=== PATIENT | male | born 1965 | race Hispanic/Latino ===

== ENCOUNTER 2024-11-27 08:11 | Inpatient (IN) | payer BC ==
[~2024-11-27] VITALS: Ht 185.4 cm; Wt 94.0 kg
[2024-11-27] VITALS (14 sets, daily range): BP systolic 88–132; BP diastolic 47–91; PULSE 70–105; RESP 14–22; TEMP 98.1–98.3; O2SAT 95
--- NOTE | 2024-11-27 08:27 | ERN ---
General Chief Complaint: Chest Pain Stated Complaint: CHEST PAIN Time Seen by MD: 08:14 History of Present Illness Initial Comments 59-year-old male history of diabetes dyslipidemia who presents for chest pain. Patient reports over the last month he has had on and off exertional chest pain and dyspnea on exertion. Over the last few days he has had increased frequency and increased severity. This morning he woke up with a very severe right-sided chest pain described as a pressure, 9/10. He went to his PCP about a week ago and was referred to a human resources advisor, but he has not had an outpatient follow up yet. He takes metformin for diabetes and a medication for dyslipidemia. No medical history otherwise. No surgical history. Denies drug abuse. This morning he reports he was at work he developed severe chest pressure and became very pale and sweaty. Allergies: Coded Allergies: No Known Allergies (Unverified Allergy, Unknown, 11/27/24) Home Meds Reported Medications Metformin HCl (Metformin HCl) 500 Mg Tablet, 1 TAB PO BID for 30 Days, #60 TAB 0 Refills 11/27/24 Past Medical History Past Medical History: Diabetes-Type II Past Surgical History: None ROS Dictation CONSTITUTIONAL: No chills, no fever, no weakness, no diaphoresis, no malaise. HEAD/FACE: No signs of trauma. EENT: No eye pain, no blurred vision, no tearing, no double vision, no ear pain, no ear discharge, no nose pain, no nasal congestion, no throat pain, no throat swelling, no mouth pain. RESPIRATORY: No cough, no orthopnea, no SOB, no stridor, no wheezing. CARDIOVASCULAR: Chest pain, dyspnea on exertion GASTROINTESTINAL/ABDOMINAL: No abdominal pain, no constipation, no diarrhea, no nausea, no vomiting. GENITOURINARY: No abnormal discharge, no dysuria, no frequent urination, no hematuria. No complaints of pain in the genitals. MUSCULOSKELETAL: No back pain, no gout, no joint pain, no joint swelling, no muscle pain, no muscle stiffness, no neck pain. INTEGUMENTARY: No change in color, no change in hair/nails, no dryness, no lesion, no lumps, no rash. NEUROLOGICAL/PSYCH: No anxiety, not depressed, no emotional problem, no headache, no numbness, no pre-existing deficit, no history of seizures, no tremors, no weakness. HEMATOLOGIC/LYMPHATIC: Not anemic, no history of blood clots, no apparent bleeding, no bruising, glands not swollen. All Systems Negative, Except as Noted. Physical Exam Physical Exam Dictation VITAL SIGNS: Reviewed. GENERAL APPEARANCE: Alert, oriented x3, moderate distress due to pain HEAD AND FACE: Non-traumatic. EYES: PERRL, pink conjunctivas, eyelid no trauma, anterior chamber clear. EARS: Pinnas intact and no signs of trauma or erythema. Ear canals clear and no discharge. TMs no erythema. NOSE: No discharge, no bleeding. OROPHARYNX: Mouth normal, teeth no caries, tongue pink. Pharynx clear, no erythema. Tonsils no exudates, no abscesses noted. Mucous membrane moist. NECK: Supple, non-tender, no thyromegaly, no masses, no JVD, no bruits. BREAST: Deferred. CHEST: No tenderness, no crepitus, no paradoxical movement, no retractions. LUNGS: Clear, well-ventilated, symmetric, no rales, no wheezing, no rhonchi, no stridor, good breath sounds bilaterally. HEART: Regular rate, regular rhythm, no murmur, no gallops. VASCULAR: No peripheral edema. ABDOMEN: Soft, positive bowel sounds, nondistended, no guarding, nontender, no rebound, no masses no hepatomegaly, no splenomegaly, no Gray's sign, no hernias. RECTAL: Deferred. GENITAL: Deferred. NEUROLOGICAL: Normal speech, gross motor function intact, gross sensory function intact. MUSCULOSKELETAL: Neck nontender, full range of motion, back nontender, full range of motion. EXTREMITIES: Nontender, full range of motion. SKIN: Color pink, dry, no turgor, no rash, no lacerations, no abrasions, no contusions. LYMPHATICS: Deferred. Results Laboratory and Microbiology Lab and Micro Result Laboratory Tests Test 11/27/24 08:43 11/27/24 09:32 White Blood Count 8.3 K/uL (4.8-10.8) 9.0 K/uL (4.8-10.8) Red Blood Count 5.53 MIL/uL (4.50-6.20) 4.80 MIL/uL (4.50-6.20) Hemoglobin 16.3 g/dL (14.0-18.0) 14.1 g/dL (14.0-18.0) Hematocrit 50.3 % (42-54) 43.0 % (42-54) Mean Corpuscular Volume 91.0 fL (79-99) 89.6 fL (79-99) Mean Corpuscular Hemoglobin 29.5 pg (27.0-33.0) 29.4 pg (27.0-33.0) Mean Corpuscular Hemoglobin Concent 32.4 g/dL (32.0-36.0) 32.8 g/dL (32.0-36.0) Red Cell Distribution Width 12.6 % (11.0-15.5) 12.6 % (11.0-15.5) Platelet Count 250 K/uL (130-400) 248 K/uL (130-400) Mean Platelet Volume 11.8 fL (7.5-10.5) H 11.4 fL (7.5-10.5) H Immature Granulocyte % (Auto) 0.2 % (0-1) 0.3 % (0-1) Neutrophils (%) (Auto) 68.5 % (40.0-77.0) 81.3 % (40.0-77.0) H Lymphocytes (%) (Auto) 19.8 % (21.0-51.0) L 11.6 % (21.0-51.0) L Monocytes (%) (Auto) 5.9 % (3.0-13.0) 4.2 % (3.0-13.0) Eosinophils (%) (Auto) 5.1 % (0.0-8.0) 2.3 % (0.0-8.0) Basophils (%) (Auto) 0.5 % (0.0-5.0) 0.3 % (0.0-5.0) Neutrophils # (Auto) 5.7 K/uL (1.8-7.7) 7.3 K/uL (1.8-7.7) Lymphocytes # (Auto) 1.6 K/uL (1.0-4.8) 1.0 K/uL (1.0-4.8) Monocytes # (Auto) 0.5 K/uL (0.1-1.0) 0.4 K/uL (0.1-1.0) Eosinophils # (Auto) 0.42 K/uL (0.00-0.70) 0.21 K/uL (0.00-0.70) Basophils # (Auto) 0.04 K/uL (0.00-0.20) 0.03 K/uL (0.00-0.20) Absolute Immature Granulocyte (auto 0.02 K/uL (0-1) 0.03 K/uL (0-1) Nucleated Red Blood Cells 0.0 % (0.0-0.19) 0.0 % (0.0-0.19) Sodium Level 143 mmol/L (136-145) Potassium Level 3.8 mmol/L (3.5-5.1) Chloride Level 106 mmol/L (101-111) Carbon Dioxide Level 26 mmol/L (21-32) Blood Urea Nitrogen 13 mg/dL (7-18) Creatinine 1.0 mg/dL (0.5-1.3) Glomerular Filtration Rate Calc 88 mL/min (>90) Random Glucose 202 mg/dL (70-105) H Total Calcium 8.7 mg/dL (8.5-10.1) Magnesium Level 2.00 mg/dL (1.80-2.40) Total Creatine Kinase 102 U/L (21-232) Troponin I High Sensitivity 146 ng/L (4-75) *H 315 ng/L (4-75) *H B-Type Natriuretic Peptide 23 pg/mL (0-100) Triglycerides Level 94 mg/dL (30-200) Cholesterol Level 186 mg/dL (<200) LDL Cholesterol 125 mg/dL (0-99) H HDL Cholesterol 47 mg/dL (29-71) Prothrombin Time 10.5 SEC (9.6-11.6) Prothromb Time International Ratio 0.99 (0.85-1.15) Activated Partial Thromboplast Time 26.5 SEC (26.3-35.5) MDM CC CC: Chest pain Historian: Patient Comorbidities: Diabetes, dyslipidemia Limitations by social determinants of health: None Differential diagnosis: ACS, PE, thoracic aortic dissection, other Vital signs: Stable, remained stable in the ER EKG: Sinus rhythm, rate 86, normal axis, good R-wave progression. Peaked T- waves V2 through this is the three. No STEMI. Independently interpreted by me. Patient high-risk, has a heart score of at least three or four, concerning presentation. Given an aspirin, nitroglycerin, morphine for pain. We will get labs repeat EKG. Patient will be admitted for cardiac workup. Troponin came back elevated Repeat EKG shows improving symptoms Started on heparin, given aspirin, given morphine Cardiology consulted Admitted to hospitalist. ED Course Orders Procedure Category Date Status Time Cbc With Differential LAB 11/27/24 Complete 08:14 Lipid Panel LAB 11/27/24 Complete 08:14 Chest 1vw RAD 11/27/24 Resulted 08:14 12 Lead Ekg Tracing- EKG 11/27/24 Complete Technical 08:14 Magnesium LAB 11/27/24 Complete 08:14 Creatine Kinase, Total LAB 11/27/24 Complete 08:14 Troponin I High LAB 11/27/24 Complete Sensitivity 08:14 Aspirin 325mg Tab PHA 11/27/24 Complete (Aspirin 325mg Tab) 08:30 Basic Metabolic Panel LAB 11/27/24 Complete 08:14 B-Type Natriuretic LAB 11/27/24 Complete Peptide 08:14 Nitroglycerin 0.4mg PHA 11/27/24 In Process Sl Tab (Nitrostat) 08:30 Morphine 4mg Syg PHA 11/27/24 Complete (Morphine 4mg Syg) 08:30 12 Lead Ekg Tracing- EKG 11/27/24 Complete Technical 08:45 Heparin 25,000 PHA 11/27/24 Complete Units/250ml D5w 09:30 Troponin I High LAB 11/27/24 Complete Sensitivity 09:22 Initiate Heparin WANDER 11/27/24 In Process Treatment Pro 09:22 Cbc With Differential LAB 11/27/24 Complete 09:22 Cbc With Differential LAB 11/28/24 Verified 04:00 Cbc With Differential LAB 12/01/24 Verified 04:00 Cbc With Differential LAB 12/04/24 Verified 04:00 Partial LAB 11/27/24 Complete Thromboplastin Time 09:22 Heparin 5,000 Unit PHA 11/27/24 In Process Vial (Heparin 5,000 U 10:30 Heparin 25,000 PHA 11/27/24 In Process Units/250ml D5w 10:30 Heparin Protocol CPOE 11/27/24 Transmitted Monitoring 09:22 Heparin 5,000 Unit PHA 11/27/24 Complete Vial (Heparin 5,000 U 10:00 Current Medications Medications (Trade) Dose Ordered Sig/Saniya Route PRN Reason Start Time Stop Time Status Last Admin Dose Admin Aspirin (Aspirin 325mg Tab) 325 mg ONCE ONCE PO 11/27/24 08:30 11/27/24 08:31 DC 11/27/24 08:39 Heparin Sodium/ Dextrose 250 ml @ 0 mls/hr PROTOCOL PRN IV PROTOCOL 11/27/24 09:30 11/27/24 09:25 DC Morphine Sulfate (morPHINE 4MG SYG) 4 mg ONCE ONCE IVP 11/27/24 08:30 11/27/24 08:31 DC 11/27/24 09:10 Nitroglycerin (Nitrostat) 0.4 mg AD PRN SL CHEST PAIN 11/27/24 08:30 12/27/24 08:29 11/27/24 08:43 Vital Signs Date Time Temp Pulse Resp B/P (MAP) Pulse Ox O2 Delivery O2 Flow Rate FiO2 11/27/24 09:11 97.5 86 14 114/76 100 Room Air* 0 21 11/27/24 08:48 97.5 89 14 113/72 100 Room Air* 0 21 11/27/24 08:40 85 14 132/86 97 Room Air* 0 21 11/27/24 08:13 97.5 82 22 127/93 100 DX & DISP Disposition: Inpatient Departure Impression: Primary Impression: NSTEMI (non-ST elevated myocardial infarction) Critical Time: 30 minutes (Critical Care Procedure NoteAuthorized and Performed by: meTotal critical care time: Approximately 36 minutesDue to a high probability of clinically significant, life threatening deterioration, the patient required my highest level of preparedness to intervene emergently and I personally spent this critical care time directly and personally managing the patient. This critical care time included obtaining a history; examining the patient; pulse oximetry; ordering and review of studies; arranging urgent treatment with development of a management plan; evaluation of patient's response to treatment; frequent reassessment; and, discussions with other providers.This critical care time was performed to assess and manage the high probability of imminent, life-threatening deterioration that could result in multi-organ failure. It was exclusive of separately billable procedures and treating other patients and teaching time.Please see MDM section and the rest of the note for further information on patient assessment and treatment.) Condition: Stable Referrals: SELF,REFERRAL (PCP) CY SIPMSON DO Nov 27, 2024 08:27
[2024-11-27] MEDS: NITROGLYCERIN 0.4 MG SL TAB SL PRN (08:38)
[2024-11-27] MEDS: ASPIRIN 325MG TAB PO ONE (08:39)
[2024-11-27 08:54] LABS: IMMATURE GRANULOCYTE ABSOLUTE 0.02 K/uL (0-1); NUCLEATED RED BLOOD CELLS 0.0 % (0.0-0.19); PLATELET COUNT (AUTO) 250 K/uL (130-400); RED BLOOD CELL COUNT(AUTO) 5.53 MIL/uL (4.50-6.20); RED CELL DISTRIBUTION WIDTH 12.6 % (11.0-15.5); WHITE BLOOD COUNT (AUTO) 8.3 K/uL (4.8-10.8)
[2024-11-27 09:15] LABS: CREATINE KINASE, TOTAL 102.0 U/L (21-232); CREATININE 1.0 mg/dL (0.5-1.3); GLOMERULAR FILTR. RATE CALC 88.0 mL/min (>90); GLUCOSE,RANDOM 202.0 mg/dL (70-105); LDL DIRECT 125.0 mg/dL (0-99); SODIUM SERUM 143.0 mmol/L (136-145); UREA NITROGEN, BLOOD 13.0 mg/dL (7-18)
--- NOTE | 2024-11-27 09:30 | HMCIMG ---
EXAM: CR Chest, 1 View. CLINICAL HISTORY: CP COMPARISON: None provided. FINDINGS: LUNGS: There is no mass, infiltrate, or acute pulmonary abnormality. PLEURAL SPACES: No evidence of pleural effusion or pneumothorax. MEDIASTINUM: Cardiac size and mediastinal contours within normal limits. BONES: No aggressive appearing osseous lesion seen. IMPRESSION: No acute cardiopulmonary pathology is evident. /[place]
[2024-11-27 09:34] LABS: IMMATURE GRANULOCYTE ABSOLUTE 0.03 K/uL (0-1); NUCLEATED RED BLOOD CELLS 0.0 % (0.0-0.19); PLATELET COUNT (AUTO) 248 K/uL (130-400); RED BLOOD CELL COUNT(AUTO) 4.80 MIL/uL (4.50-6.20); RED CELL DISTRIBUTION WIDTH 12.6 % (11.0-15.5); WHITE BLOOD COUNT (AUTO) 9.0 K/uL (4.8-10.8)
--- NOTE | 2024-11-27 10:07 | CONS ---
[facility] CARDIOLOGY CONSULTATION NOTE Date Patient Seen: Nov 27, 2024 Time of Visit: 10:06 Requesting Physician: Dr Cy Simpson ED Reason for Consultation: chest pain, NSTEMI History of Present Illness: Patient has a 59-year-old male with a past medical history of dyslipidemia, type 2 diabetes mellitus over the past 2 years, uncontrolled with hyperglycemia no reported A1c 14% who presents to the emergency department complaints of chest pain. Reports over the past 1 month, waxing and waning intermittent chest pain beneath the right axilla as well as the left side of the chest, described as a tightness. Symptoms typically occur at rest. No known triggers. He does report lifting heavy as well as performing yd work over the past few weeks with shortness of breath and diaphoresis during those activities. No family history of early coronary artery disease. No history of smoking, drug use or significant alcohol use. No street troponin elevated at 135, lyn to 315. Initial EKG showed anterior ST depressions, improvement on repeat however with hyperacute T waves. He received full-dose aspirin, initiated on heparin drip. He received 2 doses of sublingual nitroglycerin partial resolution of the symptoms. Past Medical History: Type 2 diabetes mellitus, dyslipidemia Past Surgical History: Denies Family History: Family history of coronary artery disease in his father, however no early CAD. Social History: Denies smoking history, drug use, alcohol use. Employed full-time. Home Meds: Mounjaro, metformin, recent addition of lipid-lowering medication Current Meds: Current Medications Medications Dose Ordered Sig/Saniya Start Time Stop Time Status Last Admin Nitroglycerin 0.4 mg AD PRN 11/27/24 08:30 12/27/24 08:29 11/27/24 08:43 Heparin Sodium (Porcine) *calculation based on ACTUAL B... AD PRN 11/27/24 10:30 12/27/24 10:29 Heparin Sodium/ Dextrose 250 ml @ 0 mls/hr Q6H 11/27/24 10:30 12/27/24 10:29 11/27/24 10:01 Morphine Sulfate 2 mg Q6H PRN 11/27/24 10:00 12/04/24 09:59 Ondansetron HCl 4 mg Q6H PRN 11/27/24 10:00 12/27/24 09:59 Acetaminophen 650 mg Q4H PRN 11/27/24 10:00 12/27/24 09:59 Acetaminophen 650 mg Q6H PRN 11/27/24 10:00 12/27/24 09:59 Insulin Human Regular INSULIN SLIDING SCAL... ACHS 11/27/24 11:30 12/27/24 11:29 Review of Systems: CONST: [No fever, fatigue, or weight changes.] EYES: [No recent vision problems.] ENT: [No congestion, ear pain, or sore throat.] C/V: Reports waxing and waning chest pain, described as a tightness. RESP: Reports intermittent shortness GI: [No abdominal pain, nausea, vomiting, constipation, or diarrhea.] : [No incontinence or dysuria.] SKIN: [No rash.] NEURO: [No headache, focal numbness or weakness, dizziness, or seizures.] HEME: [No abnormal bruising or bleeding.] Physical Examination: GENERAL: [No acute distress.] HEAD: [Normal with no signs of head trauma.] EYES: [PERRLA, EOMI, conjunctiva and sclera normal.] ENT: [Hearing grossly intact, normal oropharynx.] NECK: Normal carotid upstrokes without bruits.] LUNGS: [Clear breath sounds bilaterally. There are right basilar rales one third of the way up the chest. No wheezes, or rhonchi.] HEART: [Normal rate and rhythm. Normal S1 and S2 without murmurs, gallop or rub.] VASC: [Peripheral pulses +2 bilaterally.] ABD: [soft, nontender EXT: [No clubbing, cyanosis or edema.] SKIN: [No rashes or lesions noted.] NEURO: [Awake, alert, and oriented x3. No focal sensory or strength deficits not ed.] Vital Signs (last 8hr) Date Time Temp Pulse Resp B/P (MAP) Pulse Ox O2 Delivery O2 Flow Rate FiO2 11/27/24 09:11 97.5 86 14 114/76 100 Room Air* 0 21 11/27/24 08:48 97.5 89 14 113/72 100 Room Air* 0 21 11/27/24 08:40 85 14 132/86 97 Room Air* 0 21 11/27/24 08:13 97.5 82 22 127/93 100 Laboratory: [ ] Hematology Labs: Test 11/27/24 09:32 Range/Units White Blood Count 9.0 4.8-10.8 K/uL Red Blood Count 4.80 4.50-6.20 MIL/uL Hemoglobin 14.1 14.0-18.0 g/dL Hematocrit 43.0 42-54 % Mean Corpuscular Volume 89.6 79-99 fL Mean Corpuscular Hemoglobin 29.4 27.0-33.0 pg Mean Corpuscular Hemoglobin Concent 32.8 32.0-36.0 g/dL Red Cell Distribution Width 12.6 11.0-15.5 % Platelet Count 248 130-400 K/uL Mean Platelet Volume 11.4 H 7.5-10.5 fL Immature Granulocyte % (Auto) 0.3 0-1 % Neutrophils (%) (Auto) 81.3 H 40.0-77.0 % Lymphocytes (%) (Auto) 11.6 L 21.0-51.0 % Monocytes (%) (Auto) 4.2 3.0-13.0 % Eosinophils (%) (Auto) 2.3 0.0-8.0 % Basophils (%) (Auto) 0.3 0.0-5.0 % Neutrophils # (Auto) 7.3 1.8-7.7 K/uL Lymphocytes # (Auto) 1.0 1.0-4.8 K/uL Monocytes # (Auto) 0.4 0.1-1.0 K/uL Eosinophils # (Auto) 0.21 0.00-0.70 K/uL Basophils # (Auto) 0.03 0.00-0.20 K/uL Absolute Immature Granulocyte (auto 0.03 0-1 K/uL Nucleated Red Blood Cells 0.0 0.0-0.19 % Chemistry Labs: Test 11/27/24 09:32 11/27/24 08:43 Range/Units Troponin I High Sensitivity 315 *H 4-75 ng/L Sodium Level 143 136-145 mmol/L Potassium Level 3.8 3.5-5.1 mmol/L Chloride Level 106 101-111 mmol/L Carbon Dioxide Level 26 21-32 mmol/L Blood Urea Nitrogen 13 7-18 mg/dL Creatinine 1.0 0.5-1.3 mg/dL Glomerular Filtration Rate Calc 88 >90 mL/min Random Glucose 202 H 70-105 mg/dL Total Calcium 8.7 8.5-10.1 mg/dL Magnesium Level 2.00 1.80-2.40 mg/dL Total Creatine Kinase 102 21-232 U/L B-Type Natriuretic Peptide 23 0-100 pg/mL Triglycerides Level 94 30-200 mg/dL Cholesterol Level 186 <200 mg/dL LDL Cholesterol 125 H 0-99 mg/dL HDL Cholesterol 47 29-71 mg/dL Coagulation Labs: Test 11/27/24 09:32 Range/Units Activated Partial Thromboplast Time 26.5 26.3-35.5 SEC Diagnostics / Radiology: REASON: CP ORDERING PHYSICIAN: CY SIMPSON DO PROCEDURE: CXR1VW - CHEST 1VW EXAM: CR Chest, 1 View. CLINICAL HISTORY: CP COMPARISON: None provided. FINDINGS: LUNGS: There is no mass, infiltrate, or acute pulmonary abnormality. PLEURAL SPACES: No evidence of pleural effusion or pneumothorax. MEDIASTINUM: Cardiac size and mediastinal contours within normal limits. BONES: No aggressive appearing osseous lesion seen. IMPRESSION: No acute cardiopulmonary pathology is evident. /[place] DICTATED BY: JUNIOR PALACIOS Jr., MD DATE: 11/27/24 1029 Assessment: NSTEMI T2DM, uncontrolled Dyslipidemia Plan: Patient is status post full-dose aspirin, heparin bolus and initiated on drip. Status post 2 sublingual nitroglycerin, partial resolution of symptoms. Troponin is elevated. He continues with substernal chest pain. We will give loading dose of ticagrelor [address] nitroglycerin patch for persistent symptom. We will obtain transthoracic echocardiogram. We will plan for left heart catheterization coronary angiography and percutaneous intervention. The procedure was discussed in detail with the patient and his spouse at bedside, they verbalized understanding, all questions answered and they are willing to proceed. EDE PANCHAL DO Nov 27, 2024 10:07
--- NOTE | 2024-11-27 10:13 | EKG ---
[facility] Test Date: 2024-11-27 Test Time: 08:36:40 Pat Name: RICHARDSON MORALES Department: 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
--- NOTE | 2024-11-27 10:14 | EKG ---
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
[2024-11-27] MEDS: NITROGLYCERIN 1GM OINT 1 INCH/1GM TD ONE ×2 (10:59)
[2024-11-27] MEDS ORDERED: METF-444 PO (11:02)
[2024-11-27] MEDS ORDERED: LIDOCAINE HCL 400MG/20ML VIAL ONE (11:52)
[2024-11-27] MEDS ORDERED: MIDAZOLAM HCL 1 MG/ML 2ML VIAL ONE ×2 (11:52→13:19)
[2024-11-27] MEDS ORDERED: IOHEXOL 350 MG/ML 100ML INFUS..BTL IV ONE (11:52)
[2024-11-27] MEDS ORDERED: NITROGLYCERIN 50MG VIAL ONE (11:53)
[2024-11-27] MEDS ORDERED: HEParin-NS 1,000 UNIT/500 ML 1,000 ML IV ONE (11:53)
[2024-11-27 11:55] LABS: INR 0.99 (0.85-1.15)
[2024-11-27] MEDS ORDERED: VERAPAMIL HCL 2.5 MG/ML VIAL ONE (12:06)
--- NOTE | 2024-11-27 12:20 | HMCSR ---
APPROVED REPORT EXAM: Two-dimensional and M-mode echocardiogram with Doppler and color Doppler. INDICATION ICD: Chest Pain 2D Dimensions RVDd3.0 cmLVEF(%)51.4 (>50%)LVED Vol(simp.)105.1 mL IVSd1.1 (0.7-1.1cm)FS(%)26 %LVES Vol(simp.)55.2 mL LVDd4.2 (3.8-5.6cm)LA (2D)4.0 (1.6-4.0cm)LVEF(%, simp.)47 % PWd0.9 (0.7-1.1cm)Ao Root(2D)3.1 (2.0-3.7cm)LA ESV INDEX (BP)20.41 mL/m2 LVDs3.1 (2.5-4.0cm)LVOT diam2.2 (1.8-2.4cm) IVC diam1.9 cm Deformation Strain Apical 4-11.9 % Apical 2-12.4 % Apical 3-10.8 % Global Strain-11.7 % M-Mode Dimensions EPSS0.9 cm LA (MM)3.9 (1.6-4.0cm) Ao Root(MM)3.4 (2.0-3.7cm) Aortic Valve AoV Vmax1.2 m/Lang Peak GR5.6 mmHgLVOT Vmax1.0 m/s AoV VTI0.3 mAo Mean GR3.3 mmHgLVOT VTI0.22 m NAHEED (VMAX)3.19 cm2AVA (VTI) 3.0 cm2 Mitral Valve MV E Vmax88.6 cm/sDECEL Time89 ms MV A Vmax34.2 cm/sP 1/2 T59 ms E/A ratio2.6MVA (PHT)3.7 cm2 TDI E/E' Rzlnps58.4E/E' Lateral9.3 Medial E' Peak V6.17 cm/sLateral E' Peak V9.53 cm/s Pulmonary Valve PV Vmax0.9 m/sPV VTI0.21 mPV Mean GR1.9 mmHg PV Peak GR3.5 mmHg Left Ventricle The left ventricle is normal size. GLS -12.0% Anterior wall is relatively thin and severly hypokineti c. The basal anterior wall is akinetic. Anterolateral wall is hypokinetic. [place] is dyskinetic. There is normal left ventricular wall thickness. LVEF is 40-45%. Indeterminate diastolic function. Right Ventricle The right ventricle is normal size. The right ventricular systolic function is normal. Atria The left atrium size is normal. The right atrium size is normal. Aortic Valve Aortic valve is trileaflet and opens well No aortic regurgitation is present. There is no aortic valv ular stenosis. Mitral Valve The mitral valve is mildly thickened. Anterior mitral valve leaflet is mildly prolapsed. Mild mitral valve regurgitation. There is no mitral valve stenosis. Tricuspid Valve The tricuspid valve is normal in structure. There is trace of tricuspid valve regurgitation noted. Pulmonic Valve The pulmonary valve is normal in structure. There is no pulmonic valvular regurgitation. Great Vessels The aortic root is normal in size. The IVC is normal in size and collapses >50% with inspiration. Pericardium There is no pericardial effusion. Other Information Quality : AdequateRhythm : NSR Conclusion LVEF is 40-45%. Anterior wall is relatively thin and severly hypokinetic. The basal anterior wall is akinetic. [place] lateral wall is hypokinetic. [place] is dyskinetic. Indeterminate diastolic function. Mild mitral valve regurgitation.
[2024-11-27] MEDS ORDERED: HEParin-NS 1,000 UNIT/500 ML 500 ML IV ONE (13:18)
[2024-11-27] MEDS ORDERED: NITROGLYCERIN 50MG/D5W 250ML 1 BOT ONE (13:31)
[2024-11-27] MEDS ORDERED: EPTIFIBATIDE 2 MG/ML 10 ML VIAL IVP ONE ×2 (13:33→13:36)
[2024-11-27] MEDS ORDERED: EPTIFIBATIDE 75MG/100ML BOTTLE 100 ML IV ONE (13:37)
--- NOTE | 2024-11-27 14:06 | PRN ---
Cath Procedure Report CATH PROCEDURE REPORT CARDIAC CATHETERIZATION REPORT Date of Service: Nov 27, 2024 PROCEDURE: Left heart catheterization with selective right and left coronary angiography Intravascular ultrasound of the left anterior descending artery Percutaneous intervention to the proximal to mid left anterior descending artery with placement of Medtronic travis Ross 3.5 x 26 mm drug-eluting stent with the proximal portion post dilated with a 5.0 mm noncompliant balloon to 18 atmospheres (5.23 mm) Balloon angioplasty of the 1st diagonal through the stent struts using a 2.5 x 10 mm Euphora semi compliant balloon Right common femoral angiography Conscious sedation Perclose closure of the right common femoral artery ADVANCE SCOUT: Ede Austin DO INDICATION: NSTEMI DESCRIPTION OF PROCEDURE: After informed consent was obtained, patient brought back to the laboratory mechanic helper suite and fasting state. Time-out was performed. Conscious sedation was administered by independent qualify laboratory mechanic helper RN under my direct supervision. No complications secondary from anesthesia. The bilateral groins and right wrist were prepped and draped in sterile fashion. Ultrasound of the right radial artery for revealed a very small right radial artery not amenable to catheterization. Using fluoroscopic and ultrasound guidance, right common femoral artery was interrogated. 2% lidocaine was used at the subcutaneous tissues. Using micropuncture technique, a six [place] short sheath was placed in the right common femoral artery. A six [place] JR4 catheter was advanced across the aortic valve into left ventricle for LVEDP, pullback across the aortic valve, and selective angiography of the right coronary artery. Catheter was then exchanged for a JL 4.0 six [place] diagnostic catheter which was used to selectively engage the left coronary artery and multiple angiographic views were taken. ACT was found to be subtherapeutic therefore 70 units/kg of heparin was given via peripheral IV. ACT was monitored throughout the procedure and additional heparin was given as needed to maintain a goal dose of greater than 250. Using an XB six [place] 3.5 guide catheter, the left coronary artery was cannulated, 014 x 300 cm run-through was passed to the distal left anterior descending artery, predilatation of the proximal to mid left anterior descending artery was performed with the for 2.5 x 15 mm semi compliant balloon. Intravascular ultrasound was performed of the proximal to mid left anterior descending artery for accurate sizing due to significant size mismatch on the proximal and mid left anterior descending artery. A Medtronic travis Ross 3.5 x 26 mm stent was placed at the proximal to mid left anterior descending artery, jailing the 1st diagonal. This was deployed at nominal pressures. A 5.0 mm noncompliant balloon was used to post dilate the proximal portion of the stent to 18 atmospheres, according to 5.23 mm. The run-through wire was pulled back and used to cannulate the 1st diagonal, and a fresh 2.5 x 10 mm Euphora semi compliant balloon was advanced across the stent struts and deployed at nominal pressures for dilation two separate times. VERN two flow through the LAD improved to VERN three flow. No dissection. Well-opposed stent. VERN three flow through the 1st diagonal. Patient tolerated the procedure well. Due to 4/10 severity chest pain postprocedure which persisted, nitroglycerin drip was started. Double bolus Integrilin was given prior to cannulation of the 1st diagonal. Right femoral angiography was performed and closure of the arteriotomy site achieved with six [place] Perclose. The patient tolerated the procedure well without immediate complications. FINDINGS: Left main: Angiographically normal, bifurcates into left anterior descending artery left circumflex Left circumflex: Proximal 10% stenosis, otherwise angiographically free of disease. Nondominant vessel. Left anterior descending artery: Large caliber proximal left anterior descending artery measuring 5.25 mm caliber by intravascular ultrasound. Part of the takeoff of the 1st septal rod pointer, there was a subtotal 99% stenosis with VERN two flow in the mid left anterior descending artery. After the 1st diagonal, there was calcified 50% focal stenosis of the mid LAD. Otherwise, there was a 40-50% focal stenosis of the distal LAD. The 1st diagonal is large caliber proximally 3.0 mm vessel with ostial to proximal 50-60% stenosis. This lesion was also angioplasty with balloon through the stent struts from the left anterior descending artery. Right coronary artery: Right dominant system. Diffuse 10-20% stenosis of the proximal to mid RCA. 30% distal RCA stenosis prior to the bifurcation of the posterolateral extension and RPDA, which are angiographically free of disease. HEMODYNAMICS: No gradient on pullback across the aortic valve Opening aortic pressure 1444/75 with a mean of 108 mm Hg Left ventricular pressure 152 mm Hg Left ventricular end-diastolic pressure 24 mm Hg CONTRAST: 170 ml SUMMARY: 99% subtotal occlusion of the proximal left anterior descending artery before the takeoff of the 1st septal rod pointer followed by 50% stenosis after the takeoff of the 1st diagonal, and 50-60% ostial to proximal 1st diagonal stenosis. The left anterior descending artery was stented and the 1st diagonal was balloon angioplasty through the stent struts. EDE AUSTIN DO Nov 27, 2024 14:06
--- NOTE | 2024-11-27 15:16 | EKG ---
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
[2024-11-27 15:37] LABS: INR 1.02 (0.85-1.15)
--- NOTE | 2024-11-27 15:40 | NUR ---
ARRIVED TO UNIT WITH C/O STERNAL CHEST PAIN S/P ORDNANCE ENGINEERING TECHNICIAN PROCEDURE WITH STENT PLACEMENT. DR RE FERNANDEZ. REQUESTED [address] ELEVATIONS NOTED. DR PANCHAL MADE AWARE 1533. ORDERS RECEIVED TO TITRATE NITRO DRIP FOR CHEST PAIN MANAGEMENT, INITIATE HEPARIN PROTOCOL WITH BOLUS.
[2024-11-27] MEDS: 0.9%NACL 1000ML 1,000 ML IV SCH (15:53)
[2024-11-27 16:17] LABS: APPEARANCE,URINE CLEAR (CLEAR); GLUCOSE, URINE (UA) 500 mg/dL (NEGATIVE); LEUKOCYTE ESTERASE ,URINE NEGATIVE Leu/uL (NEGATIVE); NITRATE,URINE NEGATIVE (NEGATIVE); OCCULT BLOOD,URINE NEGATIVE (NEGATIVE)
[2024-11-27 16:18] LABS: ADD UA MICROSCOPIC NO
--- NOTE | 2024-11-27 16:21 | CONS ---
[facility] CONSULTATION NOTE Date Patient Seen: Nov 27, 2024 Time of Visit: 16:19 Supervising Physician: Dr Manuel Lowry Reason for Consultation: ICU medical management Primary Care Physician: [ ] Outpatient Specialists: [ ] Inpatient Consults: [ ] PROBLEM LIST: NSTEMI Status post left heart catheterization with angioplasty and stenting of the LAD 11/27 Hyperlipidemia Type 2 diabetes HPI: Patient is a 59-year-old male with past medical history for type 2 diabetes and hyperlipidemia who presented to the emergency department this morning reporting chest pain. Patient states that he has had pain on and off for the past several months. Worse with any type of physical activity. States it has worsened over the last several days. This morning he states he awoke with severe chest pain rating it a 9/10. Patient was found to have a NSTEMI, was taken to the engineer geophysical laboratory and undergoing angioplasty and with stent placement of the LAD. Patient presenting to the unit on a nitro drip. Patient reporting continued chest pain. Repeat EKG revealed continued elevations, after discussion with Cardiology decision was made to go ahead and start the heparin drip and increase the nitro. Patient is awake alert and oriented. Reporting no headache or dizziness. No abdominal complaints. Family members at bedside. Confirmed full code status. Critical Care was consulted for ICU medical management. PAST MEDICAL HX: see above PAST SURGICAL HX: noncontributory SOCIAL HISTORY: No tobacco, ETOH, or illicit drug use Coded Allergies: No Known Allergies (Unverified Allergy, Unknown, 11/27/24) REVIEW OF SYSTEMS: 12 point ROS reviewed with patient. Pertinent positives mentioned above. Otherwise negative. PHYSICAL EXAM: GENERAL: alert, weak, awake oriented x 3 HEENT: EOMI, Sclera non icteric, moist mucosa NECK: Supple, no JVD, trachea midline LUNGS: Clear breath sounds bilaterally. No wheezes HEART: Regular rate and rhythm. Normal S1 and S2, without murmurs ABD: Abdomen soft, nontender. Bowel sounds present EXT: No clubbing cyanosis or edema NEURO: Alert and oriented to person, follows commands Vital Signs (last 8hr) Date Time Temp Pulse Resp B/P (MAP) Pulse Ox O2 Delivery O2 Flow Rate FiO2 11/27/24 10:41 97.5 72 16 129/72 99 Room Air* 0 21 11/27/24 09:11 97.5 86 14 114/76 100 Room Air* 0 21 11/27/24 08:48 97.5 89 14 113/72 100 Room Air* 0 21 11/27/24 08:40 85 14 132/86 97 Room Air* 0 21 LABS: Hematology Labs: Test 11/27/24 09:32 Range/Units White Blood Count 9.0 4.8-10.8 K/uL Red Blood Count 4.80 4.50-6.20 MIL/uL Hemoglobin 14.1 14.0-18.0 g/dL Hematocrit 43.0 42-54 % Mean Corpuscular Volume 89.6 79-99 fL Mean Corpuscular Hemoglobin 29.4 27.0-33.0 pg Mean Corpuscular Hemoglobin Concent 32.8 32.0-36.0 g/dL Red Cell Distribution Width 12.6 11.0-15.5 % Platelet Count 248 130-400 K/uL Mean Platelet Volume 11.4 H 7.5-10.5 fL Immature Granulocyte % (Auto) 0.3 0-1 % Neutrophils (%) (Auto) 81.3 H 40.0-77.0 % Lymphocytes (%) (Auto) 11.6 L 21.0-51.0 % Monocytes (%) (Auto) 4.2 3.0-13.0 % Eosinophils (%) (Auto) 2.3 0.0-8.0 % Basophils (%) (Auto) 0.3 0.0-5.0 % Neutrophils # (Auto) 7.3 1.8-7.7 K/uL Lymphocytes # (Auto) 1.0 1.0-4.8 K/uL Monocytes # (Auto) 0.4 0.1-1.0 K/uL Eosinophils # (Auto) 0.21 0.00-0.70 K/uL Basophils # (Auto) 0.03 0.00-0.20 K/uL Absolute Immature Granulocyte (auto 0.03 0-1 K/uL Nucleated Red Blood Cells 0.0 0.0-0.19 % Chemistry Labs: Test 11/27/24 15:58 11/27/24 15:21 11/27/24 08:43 Range/Units Whole Blood Glucose 145 H 70-110 MG/DL Troponin I High Sensitivity 08623 *H 4-75 ng/L Sodium Level 143 136-145 mmol/L Potassium Level 3.8 3.5-5.1 mmol/L Chloride Level 106 101-111 mmol/L Carbon Dioxide Level 26 21-32 mmol/L Blood Urea Nitrogen 13 7-18 mg/dL Creatinine 1.0 0.5-1.3 mg/dL Glomerular Filtration Rate Calc 88 >90 mL/min Random Glucose 202 H 70-105 mg/dL Total Calcium 8.7 8.5-10.1 mg/dL Magnesium Level 2.00 1.80-2.40 mg/dL Total Creatine Kinase 102 21-232 U/L B-Type Natriuretic Peptide 23 0-100 pg/mL Triglycerides Level 94 30-200 mg/dL Cholesterol Level 186 <200 mg/dL LDL Cholesterol 125 H 0-99 mg/dL HDL Cholesterol 47 29-71 mg/dL Coagulation Labs: Test 11/27/24 15:21 Range/Units Prothrombin Time 10.8 9.6-11.6 SEC Prothromb Time International Ratio 1.02 0.85-1.15 Activated Partial Thromboplast Time 77.7 #H 26.3-35.5 SEC DIAGNOSTICS / RADIOLOGY RESULTS: [ ] PLAN Follow cardiology recs Telemetry Nitro drip Heparin drip protocol Sliding scale insulin Monitor electrolytes Aspirin, statin, beta-aide NEURO: Minimize central acting medications as possible. Fall Precautions. Well lighted room through the day and minimize interruptions through the night to prevent acute delirium. PULMONARY: Supplemental 02 as needed Titrate Fio2 to keep Spo2 > or = 90% DuoNebs and CPT as needed IS hourly while awake for pulmonary hygiene Out of bed to chair as tolerated VAP Bundle Vent/BIPAP Settings: [ ] Driving pressure: [ ] P Plat: [ ] Static C: [ ] Static R: [ ] P/F Ratio: [ ] CARDIOVASCULAR: Follow hemodynamics. Titrate vasopressor to keep MAP >65 or systolic blood pressure >95mmHg DIPS: [ ] LINES: [ ] GI & NUTRITION: Continue nutritional support Aspirations precautions Prokinetic agents and laxatives as needed KIDNEYS & ELECTROLYTES: Strict monitoring of intake and output Daily weights Avoid nephrotoxic agents Monitor electrolytes and replace as needed Goal urine output of 30mL/hr or 0.5mL/kg/hr Urine output: [ ] Fluid Balance: [ ] ENDOCRINE: Maintain blood glucose between 100-180 at all times. Insulin sliding scale for blood glucose management INFECTIOUS DISEASE: Trend temperature. Atkinson-culture if febrile. Micro: [ ] Antibiotics: [ ] HEMATOLOGY & COAGULATION: Monitor H&H. Keep Hgb > 7 Transfuse 1 unit of PRBC for Hgb < 7 Transfuse 1 pack of platelets of platelets < 20, 000 Watch for any signs and symptoms of bleeding SKIN: Pressure ulcer prevention per facility protocol Rehab: PT/OT Prophylaxis: GI: [ ] DVT: [ ] Code Status: Full Resuscitation Disposition: [ ] Other: Total patient care time exceeds 35 minutes excluding all procedures. Case was discussed and seen with my supervising physician. The above plan was formulated and agreed upon. NIKO KHAN PAC Nov 27, 2024 16:21
[2024-11-27 22:57] LABS: INR 1.03 (0.85-1.15)
[2024-11-28] VITALS (52 sets, daily range): BP systolic 85–123; BP diastolic 47–75; PULSE 65–105; RESP 5–39; TEMP 97.9–98.3; O2SAT 95
[2024-11-28] MEDS: NITROGLYCERIN 50MG/D5W 250ML 250 BOT IV SCH (02:34)
[2024-11-28 04:42] LABS: IMMATURE GRANULOCYTE ABSOLUTE 0.07 K/uL (0-1); NUCLEATED RED BLOOD CELLS 0.0 % (0.0-0.19); PLATELET COUNT (AUTO) 297 K/uL (130-400); RED BLOOD CELL COUNT(AUTO) 4.57 MIL/uL (4.50-6.20); RED CELL DISTRIBUTION WIDTH 12.5 % (11.0-15.5); WHITE BLOOD COUNT (AUTO) 14.2 K/uL (4.8-10.8)
[2024-11-28 04:53] LABS: CREATININE 1.1 mg/dL (0.5-1.3); GLOMERULAR FILTR. RATE CALC 78.0 mL/min (>90); GLUCOSE,RANDOM 171.0 mg/dL (70-105); LDL DIRECT 107.0 mg/dL (0-99); SODIUM SERUM 140.0 mmol/L (136-145); UREA NITROGEN, BLOOD 13.0 mg/dL (7-18)
[2024-11-28 05:50] LABS: WBC MORPHOLOGY CONSISTENT W/DIFF
--- NOTE | 2024-11-28 07:20 | NUR ---
R femoral site noted to have blood oozing, patient on heparin drip. site was soft to touch, no hematoma noted. dressing which was saturated with blood wa removed, D stat dressing was applied, pressure was held for 15 minutes until oozing stopped and the dressing was covered. Pulses palpable by doppler. P atient was instructed to be on bedrest for now, kkep the leg straight, will continue to monitor.
--- NOTE | 2024-11-28 08:40 | NUR ---
Dr. Austin came and saw the patient. Md ordered to wean off the nitro, ekg for now.Md was updated to the oozing from the site.
--- NOTE | 2024-11-28 08:53 | HP ---
DATE OF SERVICE: 11/27/2024 HISTORY AND PHYSICAL PRESENTING COMPLAINT: Chest pain. HISTORY OF PRESENT ILLNESS: A 59-year-old male with history of diabetes mellitus, dyslipidemia, and obesity, presented to the hospital with chest pain, pain localized to the left side radiating to the right side and the left axillary area. Pain has been going on for about a month. It got worse in the last few days. Presented to the emergency room where initial troponin was 146, later on increased to 315. The patient's case was discussed with Cardiology who advised the patient to be given heparin drip. EKG shows ST depression. No fever, no chills. The patient has some diaphoresis, but denies shortness of breath or palpitations. No orthopnea. The patient denies headache or dizziness. PAST MEDICAL HISTORY: Diabetes mellitus. Dyslipidemia. Obesity. PAST SURGICAL HISTORY: Denies. ALLERGIES: No known drug allergies. HOME MEDICATIONS: Reviewed. SOCIAL HISTORY: No alcohol use. The patient lives with . FAMILY HISTORY: Positive for coronary artery disease in father. REVIEW OF SYSTEMS: CONSTITUTIONAL: No fever, no chills, no weight loss or night sweats. EYES: No eye pain. No photophobia or diplopia. HENT: No sore throat. No rhinorrhea or earache. NECK: No neck pain or neck swelling. RESPIRATORY: No cough. No hemoptysis or pleuritic pain. CARDIOVASCULAR: Positive for chest pain. No shortness of breath. No orthopnea. GASTROINTESTINAL: Denies any nausea, vomiting, or abdominal pain. GENITOURINARY: No dysuria, urgency, or urinary frequency. CENTRAL NERVOUS SYSTEM: No headache, dizziness, or slurred speech. PSYCHIATRY: No depression. No suicidal ideation. MUSCULOSKELETAL: No joint pain. No joint swelling. PHYSICAL EXAMINATION: GENERAL: Young male, awake. VITAL SIGNS: Temperature 97.5, pulse 72, respirations 16, blood pressure 129/72. EYES: No icterus. Pupils are equal and reactive. HENT: No oral thrush seen. Moist oral mucosa. NECK: Supple. No JVD or thyromegaly. LUNGS: Good air entry. No rales. No rhonchi. CARDIOVASCULAR SYSTEM: S1 and S2 regular. No murmur, no gallop. ABDOMEN: Obese, soft, nontender. Bowel sounds are present. CENTRAL NERVOUS SYSTEM: Awake, alert, and oriented x 3. No focal deficits. SKIN: No rashes. LYMPHATIC: No peripheral lymphadenopathy. BACK: No deformity. No pressure ulcer. MUSCULOSKELETAL: No joint swelling, no erythema or tenderness. LABORATORY DATA: ____ Troponin 315. Sodium 143, potassium 3.8, BUN 13, creatinine 1.0. WBC 9.0, hemoglobin 14.1, platelet count 148. ELECTROCARDIOGRAM: Shows ST depression. RADIOLOGY: Chest x-ray is unremarkable. ASSESSMENT: A 59-year-old male presenting with chest pain. CURRENT PROBLEMS: Include: [id number] myocardial infarction. Poorly controlled diabetes mellitus with A1c of 14. Dyslipidemia. Obesity. PLAN: Admit the patient to PCCU. Continue heparin drip protocol. Start the patient on aspirin. Start the patient on Lipitor. Cardiology evaluation. Morphine as needed for pain. Tylenol as needed for pain and fever. Lispro sliding scale. ADA diet. Monitor electrolytes and correct as needed. TID: [id number] RECEIPT: [id number] [facility]ENTER[facility]
[2024-11-28] MEDS: ASPIRIN 81 MG EC TAB PO SCH (09:48)
--- NOTE | 2024-11-28 09:56 | NUR ---
Dr. Ledesma was notified that the the fem site was still oozing blood, and EKG result was sent to her as well. ordred to hold the heparin and wean off nitro .
[2024-11-28] MEDS ORDERED: PoTASSium chl 10% ELIXIR 20MEQ 20 MEQ/15 ML UDCUP PO PRN (11:00)
[2024-11-28] MEDS ORDERED: MAGNESIUM 2GM PREMIX 50ML 50 ML IV PRN (11:00)
--- NOTE | 2024-11-28 11:18 | EKG ---
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
[2024-11-28] MEDS: PoTASSium chloRIDE 20MEQ ER 20 MEQ ERTAB PO PRN (13:44)
--- NOTE | 2024-11-28 14:03 | NUR ---
Dr. Lowry came and has seen the patient , was updated on his condition and his soft side of BP , now in low 100's systolic but HR in the 100's, MD ordered to give the metoprolol.
--- NOTE | 2024-11-28 20:11 | PN ---
[facility] PROGRESS NOTE Date Patient Seen: Nov 28, 2024 Time of Visit: 14:00 Supervising Physician: Manuel Lowry MD Primary Care Physician: Atif Mosley MD Outpatient Specialists: [ ] Inpatient Consults: DR Younger, DR Lowry Attending: DR Vides PROBLEM LIST: NSTEMI Status post left heart catheterization with angioplasty and stenting of the LAD 11/27 Hyperlipidemia Type 2 diabetes INTERVAL HISTORY: Pt off nitro gtt today. no chest pain reported. He is hemodynamically stable. Downgraded by Cardiology to PCU status. Pt denies chest pain sob or palpitations. REVIEW OF SYSTEMS: 12 point ROS reviewed with patient. Pertinent positives mentioned above. Otherwise negative. PHYSICAL EXAM: GENERAL: alert, weak, awake oriented x 3 HEENT: EOMI, Sclera non icteric, moist mucosa NECK: Supple, no JVD, trachea midline LUNGS: Clear breath sounds bilaterally. No wheezes HEART: Regular rate and rhythm. Normal S1 and S2, without murmurs ABD: Abdomen soft, nontender. Bowel sounds present EXT: No clubbing cyanosis or edema NEURO: Alert and oriented to person, follows commands Vital Signs (last 8hr) Date Time Temp Pulse Resp B/P (MAP) Pulse Ox O2 Delivery O2 Flow Rate FiO2 11/28/24 18:16 92 106/70 (82) 97 11/28/24 17:09 94 23 104/65 (78) 98 11/28/24 16:09 94 19 96/61 (73) 11/28/24 16:00 95 Room Air* 0 21 11/28/24 16:00 98.2 11/28/24 15:54 92 18 97/55 (69) 97 11/28/24 15:39 83 104/63 (77) 97 11/28/24 15:24 88 22 102/59 (73) 94 11/28/24 15:10 80 39 107/60 (76) 96 11/28/24 14:54 72 12 100/65 (77) 96 11/28/24 14:39 72 23 105/68 (80) 96 11/28/24 14:24 87 26 107/71 (83) 97 11/28/24 14:09 65 25 111/68 (82) 95 11/28/24 13:54 104 22 113/72 (86) 95 11/28/24 13:39 100 24 123/72 (89) 97 11/28/24 13:24 93 24 109/64 (79) 96 11/28/24 13:09 97 24 102/69 (80) 96 11/28/24 12:24 91 12 117/58 (77) 96 11/28/24 12:09 95 30 101/69 (80) 97 LABS: Hematology Labs: Test 11/28/24 04:13 Range/Units White Blood Count 14.2 #H 4.8-10.8 K/uL Red Blood Count 4.57 4.50-6.20 MIL/uL Hemoglobin 13.6 L 14.0-18.0 g/dL Hematocrit 40.4 L 42-54 % Mean Corpuscular Volume 88.4 79-99 fL Mean Corpuscular Hemoglobin 29.8 27.0-33.0 pg Mean Corpuscular Hemoglobin Concent 33.7 32.0-36.0 g/dL Red Cell Distribution Width 12.5 11.0-15.5 % Platelet Count 297 130-400 K/uL Mean Platelet Volume 12.0 H 7.5-10.5 fL Immature Granulocyte % (Auto) 0.5 0-1 % Neutrophils (%) (Auto) 83.8 H 40.0-77.0 % Lymphocytes (%) (Auto) 8.7 L 21.0-51.0 % Monocytes (%) (Auto) 6.7 3.0-13.0 % Eosinophils (%) (Auto) 0.1 0.0-8.0 % Basophils (%) (Auto) 0.2 0.0-5.0 % Neutrophils # (Auto) 11.9 H 1.8-7.7 K/uL Lymphocytes # (Auto) 1.2 1.0-4.8 K/uL Monocytes # (Auto) 1.0 0.1-1.0 K/uL Eosinophils # (Auto) 0.02 0.00-0.70 K/uL Basophils # (Auto) 0.03 0.00-0.20 K/uL Absolute Immature Granulocyte (auto 0.07 0-1 K/uL Nucleated Red Blood Cells 0.0 0.0-0.19 % White Cell Morphology Comment CONSISTENT W/DIFF Chemistry Labs: Test 11/28/24 16:45 11/28/24 04:13 11/27/24 15:21 11/27/24 08:43 Range/Units Whole Blood Glucose 119 H 70-110 MG/DL Sodium Level 140 136-145 mmol/L Potassium Level 3.6 3.5-5.1 mmol/L Chloride Level 102 101-111 mmol/L Carbon Dioxide Level 31 21-32 mmol/L Blood Urea Nitrogen 13 7-18 mg/dL Creatinine 1.1 0.5-1.3 mg/dL Glomerular Filtration Rate Calc 78 >90 mL/min Random Glucose 171 H 70-105 mg/dL Total Calcium 8.5 8.5-10.1 mg/dL Magnesium Level 1.90 1.80-2.40 mg/dL Triglycerides Level 101 30-200 mg/dL Cholesterol Level 164 <200 mg/dL LDL Cholesterol 107 H 0-99 mg/dL HDL Cholesterol 44 29-71 mg/dL Troponin I High Sensitivity 48948 *H 4-75 ng/L Total Creatine Kinase 102 21-232 U/L B-Type Natriuretic Peptide 23 0-100 pg/mL Coagulation Labs: Test 11/28/24 10:10 11/27/24 22:22 Range/Units Activated Partial Thromboplast Time 43.5 H 26.3-35.5 SEC Prothrombin Time 10.9 9.6-11.6 SEC Prothromb Time International Ratio 1.03 0.85-1.15 DIAGNOSTICS / RADIOLOGY RESULTS: [ ] PLAN Follow cardiology recs Telemetry Sliding scale insulin Monitor electrolytes Aspirin, statin, beta-aide NEURO: Minimize central acting medications as possible. Fall Precautions. Well lighted room through the day and minimize interruptions through the night to prevent acute delirium. PULMONARY: Supplemental 02 as needed Titrate Fio2 to keep Spo2 > or = 90% DuoNebs and CPT as needed IS hourly while awake for pulmonary hygiene Out of bed to chair as tolerated VAP Bundle CARDIOVASCULAR: Follow hemodynamics. Titrate vasopressor to keep MAP >65 or systolic blood pressure >95mmHg DIPS: none LINES: piv GI & NUTRITION: Continue nutritional support Aspirations precautions Prokinetic agents and laxatives as needed KIDNEYS & ELECTROLYTES: Strict monitoring of intake and output Daily weights Avoid nephrotoxic agents Monitor electrolytes and replace as needed Goal urine output of 30mL/hr or 0.5mL/kg/hr Urine output: [ ] Fluid Balance: [ ] ENDOCRINE: Maintain blood glucose between 100-180 at all times. Insulin sliding scale for blood glucose management INFECTIOUS DISEASE: Trend temperature. Atkinson-culture if febrile. Micro: [ ] Antibiotics: [ ] HEMATOLOGY & COAGULATION: Monitor H&H. Keep Hgb > 7 Transfuse 1 unit of PRBC for Hgb < 7 Transfuse 1 pack of platelets of platelets < 20, 000 Watch for any signs and symptoms of bleeding SKIN: Pressure ulcer prevention per facility protocol Rehab: PT/OT Prophylaxis: GI: [famotidine DVT: lovenox ] Code Status: Full Resuscitation Disposition: [pcu] Other: ATTESTATION BY PHYSICIAN I have evaluated the patient chart, medical records, and spoke with appropriate staff. I reviewed the documentation, medical decision making, and treatment plan as noted by the mid-level provider above. I agree with the findings and plan of care. Manuel Lowry MD, [facility] Nov 28, 2024 20:11
[2024-11-29] VITALS (17 sets, daily range): BP systolic 98–130; BP diastolic 60–84; PULSE 74–106; RESP 4–27; TEMP 98–98.3; O2SAT 95
[2024-11-29 06:20] LABS: NUCLEATED RED BLOOD CELLS 0.0 % (0.0-0.19); PLATELET COUNT (AUTO) 245.0 K/uL (130-400); RED BLOOD CELL COUNT(AUTO) 4.23 MIL/uL (4.50-6.20); RED CELL DISTRIBUTION WIDTH 12.8 % (11.0-15.5); WHITE BLOOD COUNT (AUTO) 11.1 K/uL (4.8-10.8)
[2024-11-29 06:28] LABS: CREATININE 1.2 mg/dL (0.5-1.3); GLOMERULAR FILTR. RATE CALC 71.0 mL/min (>90); GLUCOSE,RANDOM 144.0 mg/dL (70-105); SODIUM SERUM 142.0 mmol/L (136-145); UREA NITROGEN, BLOOD 20.0 mg/dL (7-18)
--- NOTE | 2024-11-29 07:26 | PN ---
[facility] CARDIOLOGY PROGRESS NOTE Date Patient Seen: Nov 28, 2024 Time of Visit: 07:53 Problem List: NSTEMI Interval History: Late note entry for 11/28 due to [employer] malfunction POD 1 LHC with LAD PCI with SHELIA No further chest pain On NTG and heparin gtt. 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 On O2 via NC. No wheezes, or rhonchi.] HEART: [Normal rate and rhythm. Normal S1 and S2 without murmurs, gallop or rub.] VASC: [Peripheral pulses +2 bilaterally. Right INSTRUMENT WORKER mildly tender no ecchymoses. 2+ pulse. ABD: [soft, nontender EXT: [No cyanosis or edema.] SKIN: [No rashes or lesions noted.] NEURO: [Awake, alert, and oriented x3. No focal sensory or strength deficits noted.] Laboratory: [ ] Hematology Labs: Test 11/29/24 06:14 11/28/24 04:13 Range/Units White Blood Count 11.1 H 4.8-10.8 K/uL Red Blood Count 4.23 L 4.50-6.20 MIL/uL Hemoglobin 12.7 L 14.0-18.0 g/dL Hematocrit 36.6 L 42-54 % Mean Corpuscular Volume 86.5 79-99 fL Mean Corpuscular Hemoglobin 30.0 27.0-33.0 pg Mean Corpuscular Hemoglobin Concent 34.7 32.0-36.0 g/dL Red Cell Distribution Width 12.8 11.0-15.5 % Platelet Count 245 130-400 K/uL Mean Platelet Volume 11.8 H 7.5-10.5 fL Nucleated Red Blood Cells 0.0 0.0-0.19 % Immature Granulocyte % (Auto) 0.5 0-1 % Neutrophils (%) (Auto) 83.8 H 40.0-77.0 % Lymphocytes (%) (Auto) 8.7 L 21.0-51.0 % Monocytes (%) (Auto) 6.7 3.0-13.0 % Eosinophils (%) (Auto) 0.1 0.0-8.0 % Basophils (%) (Auto) 0.2 0.0-5.0 % Neutrophils # (Auto) 11.9 H 1.8-7.7 K/uL Lymphocytes # (Auto) 1.2 1.0-4.8 K/uL Monocytes # (Auto) 1.0 0.1-1.0 K/uL Eosinophils # (Auto) 0.02 0.00-0.70 K/uL Basophils # (Auto) 0.03 0.00-0.20 K/uL Absolute Immature Granulocyte (auto 0.07 0-1 K/uL White Cell Morphology Comment CONSISTENT W/DIFF Chemistry Labs: Test 11/29/24 06:14 11/28/24 21:07 11/28/24 04:13 11/27/24 15:21 Range/Units Sodium Level 142 136-145 mmol/L Potassium Level 3.6 3.5-5.1 mmol/L Chloride Level 103 101-111 mmol/L Carbon Dioxide Level 29 21-32 mmol/L Blood Urea Nitrogen 20 H 7-18 mg/dL Creatinine 1.2 0.5-1.3 mg/dL Glomerular Filtration Rate Calc 71 >90 mL/min Random Glucose 144 H 70-105 mg/dL Total Calcium 8.2 L 8.5-10.1 mg/dL Magnesium Level 1.90 1.80-2.40 mg/dL Whole Blood Glucose 146 H 70-110 MG/DL Triglycerides Level 101 30-200 mg/dL Cholesterol Level 164 <200 mg/dL LDL Cholesterol 107 H 0-99 mg/dL HDL Cholesterol 44 29-71 mg/dL Troponin I High Sensitivity 03853 *H 4-75 ng/L Test 11/27/24 08:43 Range/Units Total Creatine Kinase 102 21-232 U/L B-Type Natriuretic Peptide 23 0-100 pg/mL Coagulation Labs: Test 11/28/24 10:10 11/27/24 22:22 Range/Units Activated Partial Thromboplast Time 43.5 H 26.3-35.5 SEC Prothrombin Time 10.9 9.6-11.6 SEC Prothromb Time International Ratio 1.03 0.85-1.15 Impression and Plan: NSTEMI T2DM, uncontrolled Dyslipidemia ECHO Conclusion LVEF is 40-45%. Anterior wall is relatively thin and severly hypokinetic. The basal anterior wall is akinetic. Anterolateral wall is hypokinetic. [place] is dyskinetic. Indeterminate diastolic function. Mild mitral valve regurgitation. DICTATED BY: EDE PANCHAL DO DATE: 11/27/24 1026 There was 99% subtotal occlusion of the proximal left anterior descending artery before the takeoff of the 1st septal log sorting supervisor followed by 50% stenosis after the takeoff of the 1st diagonal, and 50-60% ostial to proximal 1st diagonal stenosis. The left anterior descending artery was stented and the 1st diagonal was balloon angioplasty through the stent struts. He was placed on NTG and heparin post procedure due to residual chest pain. Prior to stenting, there were collaterals from LCx filling the LAD retrograde, with subtotal occlusion reducing antegrade flow. He is chest pain free at this time. EKG no ischemia. Wean the NGT gtt, discontinue heparin. Will see how his BP can tolerate CHF GDMT EDE PANCHAL DO Nov 29, 2024 07:26
--- NOTE | 2024-11-29 07:28 | PN ---
[facility] CARDIOLOGY PROGRESS NOTE Date Patient Seen: Nov 29, 2024 Time of Visit: 07:26 Problem List: NSTEMI Interval History: POD 2 LHC with LAD PCI with SHELIA Transferred out of ICU Physical Examination: GENERAL: [No acute distress.] NECK: Normal carotid upstrokes without bruits.] LUNGS: [Clear breath sounds bilaterally. On O2 via NC. No wheezes, or rhonchi.] HEART: [Normal rate and rhythm. Normal S1 and S2 without murmurs, gallop or rub.] VASC: [Peripheral pulses +2 bilaterally. 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 2+ pulse. ABD: [soft, nontender EXT: [No cyanosis or edema.] SKIN: [No rashes or lesions noted.] NEURO: [Awake, alert, and oriented x3. No focal sensory or strength deficits noted.] Laboratory: [ ] Hematology Labs: Test 11/29/24 06:14 11/28/24 04:13 Range/Units White Blood Count 11.1 H 4.8-10.8 K/uL Red Blood Count 4.23 L 4.50-6.20 MIL/uL Hemoglobin 12.7 L 14.0-18.0 g/dL Hematocrit 36.6 L 42-54 % Mean Corpuscular Volume 86.5 79-99 fL Mean Corpuscular Hemoglobin 30.0 27.0-33.0 pg Mean Corpuscular Hemoglobin Concent 34.7 32.0-36.0 g/dL Red Cell Distribution Width 12.8 11.0-15.5 % Platelet Count 245 130-400 K/uL Mean Platelet Volume 11.8 H 7.5-10.5 fL Nucleated Red Blood Cells 0.0 0.0-0.19 % Immature Granulocyte % (Auto) 0.5 0-1 % Neutrophils (%) (Auto) 83.8 H 40.0-77.0 % Lymphocytes (%) (Auto) 8.7 L 21.0-51.0 % Monocytes (%) (Auto) 6.7 3.0-13.0 % Eosinophils (%) (Auto) 0.1 0.0-8.0 % Basophils (%) (Auto) 0.2 0.0-5.0 % Neutrophils # (Auto) 11.9 H 1.8-7.7 K/uL Lymphocytes # (Auto) 1.2 1.0-4.8 K/uL Monocytes # (Auto) 1.0 0.1-1.0 K/uL Eosinophils # (Auto) 0.02 0.00-0.70 K/uL Basophils # (Auto) 0.03 0.00-0.20 K/uL Absolute Immature Granulocyte (auto 0.07 0-1 K/uL White Cell Morphology Comment CONSISTENT W/DIFF Chemistry Labs: Test 11/29/24 06:14 11/28/24 21:07 11/28/24 04:13 11/27/24 15:21 Range/Units Sodium Level 142 136-145 mmol/L Potassium Level 3.6 3.5-5.1 mmol/L Chloride Level 103 101-111 mmol/L Carbon Dioxide Level 29 21-32 mmol/L Blood Urea Nitrogen 20 H 7-18 mg/dL Creatinine 1.2 0.5-1.3 mg/dL Glomerular Filtration Rate Calc 71 >90 mL/min Random Glucose 144 H 70-105 mg/dL Total Calcium 8.2 L 8.5-10.1 mg/dL Magnesium Level 1.90 1.80-2.40 mg/dL Whole Blood Glucose 146 H 70-110 MG/DL Triglycerides Level 101 30-200 mg/dL Cholesterol Level 164 <200 mg/dL LDL Cholesterol 107 H 0-99 mg/dL HDL Cholesterol 44 29-71 mg/dL Troponin I High Sensitivity 70231 *H 4-75 ng/L Test 11/27/24 08:43 Range/Units Total Creatine Kinase 102 21-232 U/L B-Type Natriuretic Peptide 23 0-100 pg/mL Coagulation Labs: Test 11/28/24 10:10 11/27/24 22:22 Range/Units Activated Partial Thromboplast Time 43.5 H 26.3-35.5 SEC Prothrombin Time 10.9 9.6-11.6 SEC Prothromb Time International Ratio 1.03 0.85-1.15 Impression and Plan: NSTEMI ICMP T2DM, uncontrolled Dyslipidemia ECHO Conclusion LVEF is 40-45%. Anterior wall is relatively thin and severly hypokinetic. The basal anterior wall is akinetic. Anterolateral wall is hypokinetic. [place] is dyskinetic. Indeterminate diastolic function. Mild mitral valve regurgitation. 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 The left anterior descending artery was stented and the 1st diagonal was balloon angioplasty through the stent struts. He was placed on NTG and heparin post procedure due to residual chest pain. Prior to stenting, there were collaterals from LCx filling the LAD retrograde, with subtotal occlusion reducing antegrade flow. He is chest pain free at this time. EKG no ischemia. NGT and heparin discontinued. Unable to tolerated other CHF GDMT aside from the low dose metoprolol due to marginal blood pressures. Needs uninterrupted DAPT for 12 months (aspirin 81mg q daily, ticagrelor 90 mg PO BID). Will see him in office in next 1-2 weeks for re evaluation. Groin precautions given. EDE PANCHAL DO Nov 29, 2024 07:28
[2024-11-29] MEDS: ENOXAPARIN SODIUM 40 MG/0.4 ML SYRINGE SQ SCH (09:02)
--- NOTE | 2024-11-29 11:15 | PN ---
[facility] PROGRESS NOTE Date Patient Seen: Nov 29, 2024 Time of Visit: 11:15 Supervising Physician: Manuel Lowry MD Primary Care Physician: Atif Mosley MD Outpatient Specialists: [ ] Inpatient Consults: DR Alen Smith Attending: DR Vides PROBLEM LIST: NSTEMI Status post left heart catheterization with angioplasty and stenting of the LAD 11/27 Hyperlipidemia Type 2 diabetes INTERVAL HISTORY: Chart reviewed including all laboratory and imaging results. Patient assessed at bedside. Denies chest pain, palpitation, or shortness for breath. Hemodynamically stable. No major overnight events reported. We will continue follow cardiology recommendations. REVIEW OF SYSTEMS: 12 point ROS reviewed with patient. Pertinent positives mentioned above. Otherwise negative. PHYSICAL EXAM: GENERAL: alert, weak, awake oriented x 3 HEENT: EOMI, Sclera non icteric, moist mucosa NECK: Supple, no JVD, trachea midline LUNGS: Clear breath sounds bilaterally. No wheezes HEART: Regular rate and rhythm. Normal S1 and S2, without murmurs ABD: Abdomen soft, nontender. Bowel sounds present EXT: No clubbing cyanosis or edema NEURO: Alert and oriented to person, follows commands Vital Signs (last 8hr) Date Time Temp Pulse Resp B/P (MAP) Pulse Ox O2 Delivery O2 Flow Rate FiO2 11/29/24 07:58 95 Room Air* 0 21 11/29/24 07:57 98.2 11/29/24 07:45 105 20 97 11/29/24 07:39 106 107/75 96 11/29/24 07:21 103 18 116/84 98 11/29/24 04:00 98.1 92 6 114/60 95 LABS: Hematology Labs: Test 11/29/24 06:14 11/28/24 04:13 Range/Units White Blood Count 11.1 H 4.8-10.8 K/uL Red Blood Count 4.23 L 4.50-6.20 MIL/uL Hemoglobin 12.7 L 14.0-18.0 g/dL Hematocrit 36.6 L 42-54 % Mean Corpuscular Volume 86.5 79-99 fL Mean Corpuscular Hemoglobin 30.0 27.0-33.0 pg Mean Corpuscular Hemoglobin Concent 34.7 32.0-36.0 g/dL Red Cell Distribution Width 12.8 11.0-15.5 % Platelet Count 245 130-400 K/uL Mean Platelet Volume 11.8 H 7.5-10.5 fL Nucleated Red Blood Cells 0.0 0.0-0.19 % Immature Granulocyte % (Auto) 0.5 0-1 % Neutrophils (%) (Auto) 83.8 H 40.0-77.0 % Lymphocytes (%) (Auto) 8.7 L 21.0-51.0 % Monocytes (%) (Auto) 6.7 3.0-13.0 % Eosinophils (%) (Auto) 0.1 0.0-8.0 % Basophils (%) (Auto) 0.2 0.0-5.0 % Neutrophils # (Auto) 11.9 H 1.8-7.7 K/uL Lymphocytes # (Auto) 1.2 1.0-4.8 K/uL Monocytes # (Auto) 1.0 0.1-1.0 K/uL Eosinophils # (Auto) 0.02 0.00-0.70 K/uL Basophils # (Auto) 0.03 0.00-0.20 K/uL Absolute Immature Granulocyte (auto 0.07 0-1 K/uL White Cell Morphology Comment CONSISTENT W/DIFF Chemistry Labs: Test 11/29/24 06:14 11/28/24 21:07 11/28/24 04:13 11/27/24 15:21 Range/Units Sodium Level 142 136-145 mmol/L Potassium Level 3.6 3.5-5.1 mmol/L Chloride Level 103 101-111 mmol/L Carbon Dioxide Level 29 21-32 mmol/L Blood Urea Nitrogen 20 H 7-18 mg/dL Creatinine 1.2 0.5-1.3 mg/dL Glomerular Filtration Rate Calc 71 >90 mL/min Random Glucose 144 H 70-105 mg/dL Total Calcium 8.2 L 8.5-10.1 mg/dL Magnesium Level 1.90 1.80-2.40 mg/dL Whole Blood Glucose 146 H 70-110 MG/DL Triglycerides Level 101 30-200 mg/dL Cholesterol Level 164 <200 mg/dL LDL Cholesterol 107 H 0-99 mg/dL HDL Cholesterol 44 29-71 mg/dL Troponin I High Sensitivity 97551 *H 4-75 ng/L Coagulation Labs: Test 11/28/24 10:10 11/27/24 22:22 Range/Units Activated Partial Thromboplast Time 43.5 H 26.3-35.5 SEC Prothrombin Time 10.9 9.6-11.6 SEC Prothromb Time International Ratio 1.03 0.85-1.15 DIAGNOSTICS / RADIOLOGY RESULTS: [ ] PLAN NEURO: Minimize central acting medications as possible. Maintain fall precautions, adequate lighting during the day PULMONARY: Supplemental 02 as needed. Maintain aspiration precautions at all times CARDIOVASCULAR: Follow hemodynamics. Vital signs per facility protocol GI & NUTRITION: Continue with nutritional support. Continue stool softeners and laxatives as needed. KIDNEYS & ELECTROLYTES: Strict monitoring of intake, output and overall fluid balance. Avoid nephrotoxic medications to the extent possible. Medications to be dosed according to renal function. Monitor electrolytes and replace as needed ENDOCRINE: Maintain blood glucose between 100-180 at all times. Hypoglycemia protocol in place INFECTIOUS DISEASE: Trend temperature, WBC and procalcitonin level Follow cultures, deescalate antibiotics as soon as possible. Panculture if new onset fever ONCOLOGY/HEMATOLOGY/COAGULATION: Monitor for s/s of bleeding Monitor hemoglobin, coagulation studies as needed SKIN: Pressure ulcer prevention per facility protocol Specialty mattress ORTHO/REHAB: Continue PT/OT Prophylaxis: Continue GI and DVT prophylaxis Code Status: Full Resuscitation Disposition: Per primary team Other: Total patient care time exceeds 35 minutes excluding all procedures. ATTESTATION BY PHYSICIAN I have evaluated the patient chart, medical records, and spoke with appropriate staff. I reviewed the documentation, medical decision making, and treatment plan as noted by the mid-level provider above. I agree with the findings and plan of care. Manuel Lowry MD, [facility] Nov 29, 2024 11:15
--- NOTE | 2024-11-29 19:45 | NUR ---
DISCHARGE PATIENT DISCHARGED HOME WITH FAMILY, ALL QUESTIONS ANSWERED. PATIENT MEDICATION REVIEWED AND HOME DISCHARGE INFORMATION REVIEWED AND VERBALIZED UNDERSTANDING. PATIENT TAKEN DOWN ON WHEELCHAIR, ALL QUESTIONS ANSWERED.
--- NOTE | 2024-11-29 23:26 | DS ---
Discharge Summary Hospital Course FINAL DISCHARGE DIAGNOSIS: Non-STEMI status post bilateral heart catheterization on 11/27/2024 with left anterior descending artery stented. Poorly controlled Diabetes mellitus. Dyslipidemia. PLAN: Discharge patient to home today. Continue home medication. New prescriptions for aspirin, Ticagrelor and lisinopril was written. Follow up with PCP in 1-2 days. Follow up with dinkey press operator in 1-2 weeks. This case was reviewed and discussed with my supervising physician Dr. Vides and the above assessment and plan was formulated and agreed upon. CRAIG MARX Nov 29, 2024 23:26
== END 2024-11-29 19:46 | disposition home or self-care (01) | DRG 322 ==
LOC: EDH 08:11 → EDHIP 09:40 → 2BH 14:42
PROVIDERS: ADMIT Internal Medicine Infectious Disease; ATTEND Internal Medicine Infectious Disease
PROC: B2111ZZ Fluoroscopy of Multiple Coronary Arteries using Low Osmolar Contrast (ICD-10-PCS; principal; 2024-11-27)
PROC: 027034Z Dilation of Coronary Artery, One Artery with Drug-eluting Intraluminal Device, Percutaneous Approach (ICD-10-PCS; 2024-11-27)
PROC: B240ZZ3 Ultrasonography of Single Coronary Artery, Intravascular (ICD-10-PCS; 2024-11-27)
PROC: 4A023N7 Measurement of Cardiac Sampling and Pressure, Left Heart, Percutaneous Approach (ICD-10-PCS; 2024-11-27)
PROC: 02703ZZ Dilation of Coronary Artery, One Artery, Percutaneous Approach (ICD-10-PCS; 2024-11-27)
DX: I21.4 Non-ST elevation (NSTEMI) myocardial infarction (principal); E11.65 Type 2 diabetes mellitus with hyperglycemia; E78.5 Hyperlipidemia, unspecified; E66.9 Obesity, unspecified; Z79.84 Long term (current) use of oral hypoglycemic drugs; Z82.49 Family history of ischemic heart disease and other diseases of the circulatory system; Z95.5 Presence of coronary angioplasty implant and graft; Z68.27 Body mass index [BMI] 27.0-27.9, adult; Z79.899 Other long term (current) drug therapy; Z79.01 Long term (current) use of anticoagulants
CPT/HCPCS: 36415; 71045; 80048; 80061; 81003; 82550; 82948; 83735; 83880; 84484; 85025; 85027; 85347; 85610; 85730; 92920; 92921; 93005; 93306; 93356; 93458; 96374; 99156; 99157; 99291; C1760; C1894; C9606; C9607; G0378; J1327; J1644; J1650; J1815; J2250; J2270; J3010; J3490; Q9967; C1725; C1753; C1769; C1874; C1887; Q9965